=== PATIENT | male | born 1940 | race Caucasian/White ===

== ENCOUNTER 2019-12-17 07:41 | Outpatient (CLI) | payer MEDICARE, BC | END 2019-12-17 07:42 | disposition home or self-care (01) | LOC: DI 07:41 | PROVIDERS: ATTEND Registered Nurse | DX: I11.9 Hypertensive heart disease without heart failure (principal); I48.20 Chronic atrial fibrillation, unspecified; Z79.01 Long term (current) use of anticoagulants | CPT/HCPCS: 93306 ==

== ENCOUNTER 2020-06-09 07:51 | Outpatient (CLI) | payer MEDICARE, BC ==
[2020-06-09 15:50] LABS: BASOPHILS % (AUTO) 0.8 %; EOSINOPHILS # (AUTO) 0.2 10^3/uL (0.0-0.7); EOSINOPHILS % (AUTO) 3.8 %; LYMPHOCYTES # (AUTO) 1.1 10^3/uL (1.5-3.5); LYMPHOCYTES % (AUTO) 22.1 %; MEAN CORPUSCULAR HEMOGLOBIN 33.7 pg (27.0-31.0); MEAN CORPUSCULAR HGB CONC 32.1 g/dL (32.0-36.0); MEAN CORPUSCULAR VOLUME 105.1 fL (80.0-94.0); MEAN PLATELET VOLUME 12.2 fL (7.4-11.4); MONOCYTES # (AUTO) 0.4 10^3/uL (0.0-1.0); MONOCYTES % (AUTO) 7.7 %; NEUTROPHILS # (AUTO) 3.3 10^3/uL (1.5-6.6); NEUTROPHILS % (AUTO) 65.4 %; PLT - PLATELET COUNT 127 10^3/uL (130-450); RED BLOOD COUNT 3.56 10^6/uL (4.70-6.10); RED CELL DISTRIBUTION WIDTH 14.6 % (12.0-15.0); WHITE BLOOD COUNT 5.1 x10^3/uL (4.8-10.8)
[2020-06-09 16:00] LABS: ALBUMIN 3.9 g/dL (3.2-5.5); ALBUMIN/GLOBULIN RATIO 1.5 (1.0-2.2); ALKALINE PHOSPHATASE 54 IU/L (42-121); ALT ALANINE AMINOTRANSFERASE 17 IU/L (10-60); AST ASPARTATE AMINOTRANSFERASE 19 IU/L (10-42); BILIRUBIN,TOTAL 0.9 mg/dL (0.2-1.0); BUN - BLOOD UREA NITROGEN 27 mg/dL (6-20); CALCIUM 9.3 mg/dL (8.5-10.3); CARBON DIOXIDE - CO2 26 mmol/L (21-32); CHLORIDE 105 mmol/L (101-111); CHOL/HDL RATIO 3.2 (<5.0); CHOLESTEROL 161 mg/dL; CREATININE 1.1 mg/dL (0.6-1.2); GLUCOSE 97 mg/dL (70-100); HDL CHOLESTEROL 50 mg/dL; LDL CHOLESTEROL,CALCULATED 100 mg/dL; SODIUM 138 mmol/L (135-145); TOTAL PROTEIN 6.5 g/dL (6.7-8.2); VLDL CHOLESTEROL 11 mg/dL
== END 2020-06-09 07:52 | disposition home or self-care (01) ==
LOC: LAB.S 07:51
PROVIDERS: ATTEND Registered Nurse
DX: I10 Essential (primary) hypertension (principal); Z79.01 Long term (current) use of anticoagulants; I48.20 Chronic atrial fibrillation, unspecified
CPT/HCPCS: 36415; 80053; 80061; 83721; 84443; 85025

== ENCOUNTER 2020-09-06 08:00 | Outpatient (CLI) | payer MEDICARE, BC ==
--- NOTE | 2020-09-06 13:08 | XRAY Report ---
PROCEDURE: Shoulder 3 View RT INDICATIONS: PAIN IN RIGHT SHOULDER TECHNIQUE: 3 views of the shoulder were acquired. COMPARISON: None. FINDINGS: Bones: No acute fractures or dislocations. No suspicious bony lesions. Visualized ribs appear inta ct. Mild degenerative changes are seen in the acromioclavicular joint. Soft tissues: No suspicious soft tissue calcifications. Sternotomy changes are noted. IMPRESSION: No acute osseous abnormality. If there is clinical concern or persistent symptoms, furth er evaluation with repeat radiographs or advanced imaging (e.g. CT, MRI) may be obtained for further evaluation. Reviewed by: Ned Martinez MD on 09/06/2020 1:07 PM [facility] Approved by: Ned Martinez MD on 09/06/2020 1:07 PM [facility] Station ID: [id number]
--- NOTE | 2020-09-06 13:17 | XRAY Report ---
PROCEDURE: Clavicle RT INDICATIONS: PAIN IN RIGHT SHOULDER TECHNIQUE: 2 views of the clavicle were acquired. COMPARISON: Same day right shoulder radiographs. FINDINGS: Bones: No fractures or dislocations. No suspicious bony lesions. AC joint interval is within normal limits. Post median sternotomy. Soft tissues: No suspicious soft tissue calcifications. IMPRESSION: No clavicle fracture. Reviewed by: Kenneth Jasso MD on 09/06/2020 1:16 PM PST Approved by: Kenneth Jasso MD on 09/06/2020 1:16 PM [facility] Station ID: [id number]
== END 2020-09-06 23:59 | disposition home or self-care (01) ==
LOC: DI.S 08:00
PROVIDERS: ATTEND Physician Assistant Medical
DX: M25.511 Pain in right shoulder (principal); Z79.01 Long term (current) use of anticoagulants
CPT/HCPCS: 85610

== ENCOUNTER 2020-09-08 08:37 | Outpatient (CLI) | payer MEDICARE, BC | END 2020-09-08 08:38 | disposition home or self-care (01) | LOC: LAB.S 08:37 | PROVIDERS: ATTEND Registered Nurse | DX: S10.83XA Contusion of other specified part of neck, initial encounter (principal) | CPT/HCPCS: 36415; 80048; 85610 ==

== ENCOUNTER 2020-09-08 16:15 | Outpatient (CLI) | payer MEDICARE, BC ==
[2020-09-08 15:58] LABS: CALCIUM 9.7 mg/dL (8.5-10.3); CREATININE 1.2 mg/dL (0.6-1.2)
[2020-09-08] MEDS ORDERED: IOVERSOL 320 100 ML VIAL IVP ONE ×3 (16:29→19:40)
--- NOTE | 2020-09-08 17:23 | CT Report ---
PROCEDURE: CHEST W INDICATIONS: CONTUSION OF NECK, ANTICOAGULATION CONTRAST: IV CONTRAST: Optiray 320 ml: 100 PO CONTRAST: *NO PO CONTRAST TECHNIQUE: After the administration of intravenous contrast, 5 mm thick sections acquired from the pulmonary api radha to the posterior costophrenic angles. 7 mm thick coronal MIP reformats were acquired. For radia tion dose reduction, the following was used: automated exposure control, adjustment of mA and/or kV according to patient size. COMPARISON: None. FINDINGS: Image quality: Excellent. Lungs and pleura: No acute air space opacities. No pleural effusions or pneumothorax. Central and peripheral airways are patent and normal in caliber. The left lower lobe series 4 image 257 has a 6 mm nodule. Mediastinum: Heart size is normal. No pericardial effusion. No mediastinal or hilar adenopathy by size criteria. Thoracic aorta and central pulmonary arteries are normal in size. Esophagus is lonnie l in caliber. No hiatal hernia. Status post mitral valve replacement. Bones and chest wall: There is a nondisplaced fracture of the medial aspect of the right clavicle. Th e L1 vertebral body demonstrates anterior wedging consistent with a compression fracture likely chron ic but of indeterminate age. No axillary or supraclavicular adenopathy by size criteria. Thyroid gla nd is normal. Abdomen: Visualized upper abdominal solid organs appear normal. Upper abdominal bowel loops are nor mal in caliber. IMPRESSION: 1. Fracture of the medial right clavicle. 2. 6 mm nodule in the left lower lobe. Recommend follow-up imaging in 6 months to ensure stability. 3. Anterior wedging of the L1 vertebral body, likely chronic but of indeterminate age. Reviewed by: Mark Busch on 09/08/2020 5:22 PM PST Approved by: Mark Busch on 09/08/2020 5:22 PM PST Station ID: [id number]
--- NOTE | 2020-09-08 17:31 | CT Report ---
PROCEDURE: SOFT TISSUE NECK W INDICATIONS: CONTUSION OF NECK, ANTICOAGULATION CONTRAST: IV CONTRAST: Optiray 320 ml: 100 PO CONTRAST: *NO PO CONTRAST TECHNIQUE: After the administration of intravenous contrast, 3.0 mm axial sections acquired from the sella to th e aortic arch. Additional oblique axial 3.0 mm sections acquired through the pharynx. 3 mm thick co lew reformats were generated. For radiation dose reduction, the following was used: automated exp osure control, adjustment of mA and/or kV according to patient size. COMPARISON: None. FINDINGS: Image quality: Excellent. Lymph nodes: No enlarged lymph nodes seen throughout the neck. Vessels: Visualized vasculature appears patent. Neck spaces: The oropharynx, nasopharynx, and pharynx demonstrate no mucosal lesions. The vocal cor ds, false vocal cords, pyriform sinuses, epiglottis, vallecula, and tongue base all appear normal. E xtramucosal spaces appear unremarkable. Glands: The parotid and submandibular glands appear normal. The thyroid is normal in size. Miscellaneous: Visualized brain and orbits appear normal. Lung apices appear clear. Superficial so ft tissues appear normal. Bones: There is a fracture of the medial right clavicle. The right sternocleidomastoid muscle has an intramuscular hematoma extending cephalad. Visualized sinuses and mastoids appear unremarkable. The cervical spine has multilevel degenerative changes and multilevel disc disease. IMPRESSION: Fracture of the medial right clavicle with an intramuscular hematoma of the right sternoc leidomastoid muscle. Reviewed by: Mark Busch on 09/08/2020 5:29 PM [facility] Approved by: Mark Busch on 09/08/2020 5:29 PM PST Station ID: [id number]
== END 2020-09-08 16:16 | disposition home or self-care (01) ==
LOC: DI 16:15
PROVIDERS: ATTEND Physician Assistant Medical
DX: S42.017A Nondisplaced fracture of sternal end of right clavicle, initial encounter for closed fracture (principal); R91.1 Solitary pulmonary nodule; M79.81 Nontraumatic hematoma of soft tissue; S10.83XA Contusion of other specified part of neck, initial encounter
CPT/HCPCS: 36415; 70491; 71260; 80048; Q9967

== ENCOUNTER 2020-11-16 15:55 | Outpatient (CLI) | payer MEDICARE, BC ==
--- NOTE | 2020-11-16 17:00 | XRAY Report ---
PROCEDURE: Clavicle RT INDICATIONS: NONDISPLACED FRACTURE OF STERNAL END OF RT CLAVICL TECHNIQUE: 2 views of the clavicle were acquired. COMPARISON: 09/06/[address] dated 09/08/2020 FINDINGS: Bones: The minimally displaced medial right clavicular fracture seen on comparison CT is not well-vis ualized on today's radiographic evaluation. No significant periosteal reaction or callus formation se en. Fracture line is not well visualized secondary to numerous overlying structures. Coracoclavicular and acromioclavicular intervals are maintained. Multiple mediastinal wires remain intact. No suspic ious bony lesions. Soft tissues: No suspicious soft tissue calcifications. IMPRESSION: Known medial right clavicular fracture is not well visualized radiographically. The coracoclavicular and acromioclavicular intervals are maintained. Reviewed by: Roni Keith MD on 11/16/2020 4:58 PM PDT Approved by: Roni Keith MD on 11/16/2020 4:58 PM PDT Station ID: [id number]
== END 2020-11-16 15:56 | disposition home or self-care (01) ==
LOC: DI.S 15:55
PROVIDERS: ATTEND Registered Nurse
DX: S42.017A Nondisplaced fracture of sternal end of right clavicle, initial encounter for closed fracture (principal)

== ENCOUNTER 2021-08-17 12:57 | Outpatient (CLI) | payer MEDICARE, BC ==
[2021-08-17 20:00] LABS: BASOPHILS % (AUTO) 0.6 %; EOSINOPHILS # (AUTO) 0.1 10^3/uL (0.0-0.7); EOSINOPHILS % (AUTO) 1.5 %; HCT - HEMATOCRIT 36.3 % (42.0-52.0); LYMPHOCYTES % (AUTO) 19.6 %; MEAN CORPUSCULAR HEMOGLOBIN 34.1 pg (27.0-31.0); MEAN CORPUSCULAR HGB CONC 33.1 g/dL (32.0-36.0); MEAN CORPUSCULAR VOLUME 103.1 fL (80.0-94.0); MEAN PLATELET VOLUME 12.4 fL (7.4-11.4); MONOCYTES # (AUTO) 0.4 10^3/uL (0.0-1.0); MONOCYTES % (AUTO) 8.1 %; NEUTROPHILS # (AUTO) 3.6 10^3/uL (1.5-6.6); PLT - PLATELET COUNT 125 10^3/uL (130-450); RED BLOOD COUNT 3.52 10^6/uL (4.70-6.10); RED CELL DISTRIBUTION WIDTH 13.2 % (12.0-15.0); WHITE BLOOD COUNT 5.2 x10^3/uL (4.8-10.8)
[2021-08-17 20:23] LABS: ALBUMIN 4.1 g/dL (3.2-5.5); ALBUMIN/GLOBULIN RATIO 1.5 (1.0-2.2); ALKALINE PHOSPHATASE 53 IU/L (42-121); ALT ALANINE AMINOTRANSFERASE 15 IU/L (10-60); AST ASPARTATE AMINOTRANSFERASE 22 IU/L (10-42); BUN - BLOOD UREA NITROGEN 43 mg/dL (6-20); CALCIUM 9.1 mg/dL (8.5-10.3); CARBON DIOXIDE - CO2 27 mmol/L (21-32); CHLORIDE 104 mmol/L (101-111); CHOL/HDL RATIO 3.8 (<5.0); CHOLESTEROL 172 mg/dL; CREATININE 1.2 mg/dL (0.6-1.2); GFR - MDRD 58 (>89); GLUCOSE 101 mg/dL (70-100); HDL CHOLESTEROL 45 mg/dL; LDL CHOLESTEROL,CALCULATED 117 mg/dL; LDL/HDL RATIO 2.6 (<3.6); POTASSIUM 4.7 mmol/L (3.5-5.0); SODIUM 139 mmol/L (135-145); TOTAL PROTEIN 6.9 g/dL (6.7-8.2); TRIGLYCERIDES 52 mg/dL; VLDL CHOLESTEROL 10 mg/dL
[2021-08-17 20:34] LABS: THYROID STIMULATING HORMONE 1.49 uIU/mL (0.34-5.60)
[2021-08-17 20:40] LABS: FERRITIN 210.3 ng/mL (23.9-336.2)
== END 2021-08-17 12:58 | disposition home or self-care (01) ==
LOC: LAB.S 12:57
PROVIDERS: ATTEND Registered Nurse
DX: D64.9 Anemia, unspecified (principal); Z79.01 Long term (current) use of anticoagulants; I10 Essential (primary) hypertension; I48.20 Chronic atrial fibrillation, unspecified
CPT/HCPCS: 36415; 80053; 80061; 82728; 83721; 84443; 85025

== ENCOUNTER 2021-10-09 13:32 | Outpatient (CLI) | payer MEDICARE, BC ==
[2021-10-09 18:20] LABS: ALBUMIN 3.9 g/dL (3.2-5.5); ALKALINE PHOSPHATASE 48 IU/L (42-121); ALT ALANINE AMINOTRANSFERASE 15 IU/L (10-60); AST ASPARTATE AMINOTRANSFERASE 22 IU/L (10-42); BILIRUBIN,TOTAL 0.6 mg/dL (0.2-1.0); BUN - BLOOD UREA NITROGEN 57 mg/dL (6-20); CREATININE 1.5 mg/dL (0.6-1.2); GFR - MDRD 45 (>89); TOTAL PROTEIN 6.5 g/dL (6.7-8.2)
[2021-10-09 18:51] LABS: BILIRUBIN,DIRECT < 0.1 mg/dL (0.1-0.5)
== END 2021-10-09 13:33 | disposition home or self-care (01) ==
LOC: LAB.S 13:32
PROVIDERS: ATTEND Physician Assistant Medical
DX: B35.1 Tinea unguium (principal); Z79.899 Other long term (current) drug therapy
CPT/HCPCS: 36415; 80076; 82565; 84520

== ENCOUNTER 2021-12-19 14:28 | Outpatient (CLI) | payer MEDICARE, BC ==
--- NOTE | 2021-12-19 16:19 | XRAY Report ---
PROCEDURE: Lumbar Spine 2 View INDICATIONS: BACK PAIN, LUMBAR TECHNIQUE: 3 views of the lumbar spine were acquired. COMPARISON: None. FINDINGS: Bones: 5 taj-dpx-ouonior vertebrae are present. Diffuse osteopenia. Mild dextrocurvature centered at L1-L2. An L1 compression may potentially be acute. An L2 compression is probably chronic. No suspici ous bony lesions. Soft tissues: Overlying bowel gas pattern is normal. No suspicious soft tissue calcifications. IMPRESSION: 1. An L1 compression may potentially be acute. An L2 compression is probably chronic. 2. Dextrocurvature, osteopenia. 3. Lumbar spine MRI may potentially be helpful to identify potential fracture acuity. Reviewed by: Dav Goodwin MD on 12/19/2021 4:18 PM PDT Approved by: Dav Goodwin MD on 12/19/2021 4:18 PM PDT Station ID: [id number]
== END 2021-12-19 14:29 | disposition home or self-care (01) ==
LOC: DI.S 14:28
PROVIDERS: ATTEND Registered Nurse
DX: M48.53XA Collapsed vertebra, not elsewhere classified, cervicothoracic region, initial encounter for fracture (principal); M85.88 Other specified disorders of bone density and structure, other site

== ENCOUNTER 2022-01-06 13:11 | Outpatient (CLI) | payer MEDICARE, BC ==
[2022-01-06 20:26] LABS: CALCIUM 9.1 mg/dL (8.5-10.3); CREATININE 1.3 mg/dL (0.6-1.2); POTASSIUM 4.9 mmol/L (3.5-5.0)
== END 2022-01-06 13:12 | disposition home or self-care (01) ==
LOC: LAB.S 13:11
PROVIDERS: ATTEND Internal Medicine
DX: I50.22 Chronic systolic (congestive) heart failure (principal)
CPT/HCPCS: 36415; 80048

== ENCOUNTER 2022-02-07 10:31 | Outpatient (CLI) | payer MEDICARE, BC ==
--- NOTE | 2022-02-07 17:50 | MRI Report ---
PROCEDURE: MRI lumbar spine without contrast INDICATIONS: COLLAPSED VERTEBRA TECHNIQUE: Noncontrast sagittal T1 spin echo and T2 fast echo, sagittal STIR, axial T1 and T2 fast spin echo thr ough the lumbar spine. In cases with scoliosis, additional coronal T2 fast spin echo may be performe d. COMPARISON: None. FINDINGS: Image quality: Excellent. Alignment and Curvature: Convex right thoracolumbar scoliosis present. Bone Marrow: Modic type I degenerative endplate changes noted involving T11 superior endplates, L1-2 and without evidence of acute fracture. Wedge-shaped defect compression fractures are noted at L1 and L2 without evidence of marrow edema. Spinal Cord: Conus medullaris terminates at the L1 level. Visualized cord demonstrates normal signa l and size. Paraspinous Soft Tissues: No paravertebral masses. T12-L1: Disc space narrowing and circumferential disc bulge without central or foraminal stenosis. L1-L2: And disc space narrowing and circumferential disc bulge with hypertrophic facet joints resu lts in mild central stenosis. Severe left and no right foraminal stenosis L2-L3: Disc space narrowing with circumferential disc bulge and hypertrophic facet joint results i n mild to moderate central stenosis. Moderate left and right foraminal stenosis L3-L4: Disc height is maintained. Circumferential disc bulge and hypertrophic facet joints results in moderate central stenosis. Moderate bilateral foraminal stenosis present. L4-L5: Disc height is maintained. Circumferential disc bulge and hypertrophic facet joints results in moderate central stenosis. Severe right and moderate left foraminal stenosis L5-S1: Disc space narrowing with circumferential disc bulge associated with severe right and mild l eft foraminal stenosis. No central stenosis. IMPRESSION: Multilevel generative disc disease, arthropathy and dextroscoliosis results in varying degrees of leonard tral and foraminal stenosis including moderate central and severe right foraminal stenosis at L4-5. Chronic appearing L1 and L2 compression fractures. Reviewed by: Shayne Perez MD on 02/07/2022 4:49 PM [facility] Approved by: Shayne Perez MD on 02/07/2022 4:49 PM [facility] Station ID: [id number]
== END 2022-02-07 10:32 | disposition home or self-care (01) ==
LOC: DI 10:31
PROVIDERS: ATTEND Registered Nurse
DX: M48.56XA Collapsed vertebra, not elsewhere classified, lumbar region, initial encounter for fracture (principal); M47.815 Spondylosis without myelopathy or radiculopathy, thoracolumbar region; M47.816 Spondylosis without myelopathy or radiculopathy, lumbar region; M47.817 Spondylosis without myelopathy or radiculopathy, lumbosacral region; M48.061 Spinal stenosis, lumbar region without neurogenic claudication; M48.07 Spinal stenosis, lumbosacral region

== ENCOUNTER 2022-03-07 15:14 | Outpatient (CLI) | payer MEDICARE, BC ==
--- NOTE | 2022-03-07 18:26 | DEXA Report ---
PROCEDURE: Dexa Spine and/or Hip INDICATIONS: COLLAPSED VERTEBRA TECHNIQUE: Dual energy x-ray absorptiometry (DXA) was performed on a [employer] System. Regions measur ed are the AP Spine, femoral neck, and if needed forearm. COMPARISON: 02/07/2022 FINDINGS: Lumbar Spine: Bone Mineral Density 0.998 g/cm/cm,T score -1.9, BMD of L3 and L4 which do not have height loss show T scores of -2.3 and -2.5. Left Femoral Neck: Bone Mineral Density 0.68 g/cm/cm, T score -3, (T score greater or equal to -1.0: NORMAL) (T score from -1.1 to -2.4: OSTEOPENIA) (T score less than or equal to -2.5 to: OSTEOPOROSIS) Impression: Osteoporosis based on T-scores at L3, L4, and left femoral neck. L1 and L2 compression deformities. Patients with diagnosis of osteoporosis or osteopenia should have regular bone mineral density assess ment. For those eligible for Medicare, routine testing is allowed once every 2 years. Testing frequ ency can be increased for patients who have rapidly progressing disease or for those who are receivin g medical therapy to restore bone mass. Reviewed by: Med Beckham MD on 03/07/2022 6:25 PM PDT Approved by: Med Beckham MD on 03/07/2022 6:25 PM PDT Station ID: [id number]
== END 2022-03-07 15:15 | disposition home or self-care (01) ==
LOC: DI 15:14
PROVIDERS: ATTEND Registered Nurse
DX: M81.0 Age-related osteoporosis without current pathological fracture (principal); M48.56XA Collapsed vertebra, not elsewhere classified, lumbar region, initial encounter for fracture

== ENCOUNTER 2022-03-08 14:49 | Outpatient (CLI) | payer MEDICARE, BC ==
[2022-03-08 20:10] LABS: ALBUMIN 3.9 g/dL (3.2-5.5); BILIRUBIN,DIRECT 0.1 mg/dL (0.1-0.5); BILIRUBIN,TOTAL 0.4 mg/dL (0.2-1.0); TOTAL PROTEIN 6.2 g/dL (6.7-8.2)
== END 2022-03-08 14:50 | disposition home or self-care (01) ==
LOC: LAB.S 14:49
PROVIDERS: ATTEND Physician Assistant Medical
DX: B35.1 Tinea unguium (principal); Z79.899 Other long term (current) drug therapy
CPT/HCPCS: 36415; 80076

== ENCOUNTER 2022-09-13 15:29 | Emergency (ER) | payer MEDICARE, BC ==
--- NOTE | 2022-09-13 15:52 | ED Physician Documentation ---
History of Present Illness - Stated complaint Stated Complaint: FALL FROM CHAIR - Additonal information Additional information: 82-year-old male presents to the emergency department via EMS as a modified trauma. History is obtained from both the EMS chart as well as the patient. Patient is a good historian. This gentleman was sitting at home on a barstool when he fell asleep. He tipped forward falling into radial equipment. He woke up immediately. He does have a large abrasion on his right upper forehead as well as on his posterior occiput. 911 was summoned and he was brought here. He is on Coumadin. Very remote history of a mitral valve repair in 1978. Review of Systems Constitutional: denies: Fever, Chills Ears: reports: Reviewed and negative Throat: reports: Reviewed and negative Cardiac: denies: Chest pain / pressure, Palpitations Respiratory: reports: Reviewed and negative GI: reports: Reviewed and negative Skin: reports: Abrasion (s) Musculoskeletal: denies: Neck pain, Back pain PD PAST MEDICAL HISTORY - Past Medical History Cardiovascular: Atrial fibrillation, Arrhythmia, Valve disorder Respiratory: None Endocrine/Autoimmune: None GI: None : Benign prostate hypertrophy HEENT: Chronic vision loss, Chronic sinusitis, Chronic hearing loss Psych: None Musculoskeletal: None Derm: Other - Past Surgical History General: Colonoscopy Cardiovascular: Other Derm: Skin cancer surgery - Present Medications Home Medications: Ambulatory Orders Medication Instructions Recorded Confirmed Lisinopril 20 mg PO BID 10/05/15 10/06/15 Warfarin [Coumadin] 5 mg PO DAILY 10/05/15 10/06/15 carvediloL phosphate [Coreg Cr] 20 mg PO BID 10/06/15 10/06/15 - Allergies Allergies/Adverse Reactions: Allergies Allergy/AdvReac Type Severity Reaction Status Date / Time No Known Drug Allergies Allergy Verified 09/13/22 15:42 PD ED PE NORMAL - General General: Alert and oriented X 3, No acute distress, Well developed/nourished - HEENT HEENT: Atraumatic (Large abrasion on the right upper forehead as well as the right posterior occiput), Ears normal, Moist mucous membranes, Other (Patient presents in a rigid cervical collar. No midline cervical tenderness was elicited) - Neck Neck: Supple, no meningeal sign, No bony TTP, Other (Negative for hemotympanums maher sign and raccoon eyes) - Cardiac Cardiac: RRR. No: No murmur - Respiratory Respiratory: No respiratory distress, Clear bilaterally - Abdomen Abdomen: Normal bowel sounds, Soft - Derm Derm: Normal color, Warm and dry, Other (Abrasions as described above) - Extremities Extremities: No deformity - Neuro Neuro: Alert and oriented X 3, business solutions architect 2-12 intact, No motor deficit, No sensory deficit Eye Opening: Spontaneous Motor: Obeys Commands Verbal: Oriented GCS Score: 15 Results - Vitals Vitals: Vital Signs - 24 hr 09/13/22 09/13/22 15:42 15:55 Temperature 36.5 C Heart Rate 80 63 Respiratory 16 20 Rate Blood Pressure 144/78 H 144/78 H O2 Saturation 100 100 Oxygen O2 Source Room air - Labs Labs: Laboratory Tests 09/13/22 09/13/22 09/13/22 15:50 15:50 15:50 WBC 9.2 RBC 3.12 L Hgb 10.5 L Hct 32.4 L MCV 103.8 H MCH 33.7 H MCHC 32.4 RDW 13.9 Plt Count 133 MPV 11.3 Neut # (Auto) 7.8 H Lymph # (Auto) 0.7 L [place] # (Auto) 0.5 Eos # (Auto) 0.1 Baso # (Auto) 0.0 Absolute Nucleated RBC 0.00 Nucleated RBC % 0.0 PT 34.3 H INR 3.3 H Sodium 136 Potassium 4.6 Chloride 103 Carbon Dioxide 25 Anion Gap 8.0 BUN 43 H Creatinine 1.3 H Estimated GFR (MDRD) 53 L Glucose 121 H Calcium 8.9 - Rads (name of study) cxr Radiology: Final report received (Mild diffuse lung disease could represent edema or atypical infection. Cardiomegaly.) CT head Radiology: Final report received (No CT evidence of acute intracranial abnormalities. Age-related volume loss and mild to moderate white matter chronic small vessel ischemic changes. No gross acute skull fracture) Cervical CT Radiology: Final report received (No acute cervical spine fracture or dislocation. Degenerative disc disease throughout the cervical spine) Procedures - Laceration (location) Posterior scalp Length in cm: 3.5 Wound type: Linear, Into subcut fat Wound preparation: Chlorhexadine, Irrigated copiously NS Skin layer closure: Ramon (4 ramon placed in the right posterior vertical scalp wound.) Other: Patient tolerated well, No complications, Tetanus UTD PD Medical Decision Making - ED course Complexity details: reviewed results, re-evaluated patient, considered differential, d/w patient ED course: 82-year-old male who is anticoagulated on Coumadin secondary to a history of remote mitral valve repair presents emergency department for evaluation of closed head injury after he fell asleep on a barstool falling forward striking his head on radio equipment. There was no loss of consciousness. On exam in the emergency department the patient is a Erika Coma Scale of 15 with no focal deficits. He does have a 3.5 cm right posterior scalp laceration that was closed with 4 ramon. Tetanus was updated today in the ER. CT of the head was completed and shows no findings to suggest acute intracranial hemorrhage. CT of the cervical spine was negative. I personally remove the c- collar. The patient was able to range his neck fully without any pain elicited. There was no midline tenderness. I did personally evaluate the CBC and electrolytes. He does have mild amount of chronic kidney disease that is essentially unchanged from baseline. No worrisome anemia. His INR is 3.3 today the upper limit of normal for anticoagulated patients. Patient is discharged home in stable condition with usual routine emergent return precautions discussed Departure - Departure Disposition: 01 Home, Self Care Clinical Impression: Anticoagulated on Coumadin Fall Qualifiers: Encounter type: initial encounter Qualified Code(s): W19.XXXA - Unspecified fall, initial encounter Laceration of head Qualifiers: Encounter type: initial encounter Location of open wound of head: scalp Foreign body presence: without foreign body Qualified Code(s): S01.01XA - Laceration without foreign body of scalp, initial encounter CKD (chronic kidney disease) Qualifiers: Chronic kidney disease stage: unspecified stage Qualified Code(s): N18.9 - Chr onic kidney disease, unspecified Condition: Stable Record reviewed to determine appropriate education?: Yes Instructions: ED Laceration Scalp Stitch Or Stap Comments: Jaron you came to the emergency department today because you were sitting on a barstool at home, fell asleep and then fell forward. You did not lose consciousness. However you did sustain a 3.5 cm laceration to your right posterior occiput put. 4 ramon have been placed in this wound. This should be removed in 7 to 10 days. You can shower normally and apply a thin layer of antibiotic ointment over the wound when done. You also had a skin tear on your left index finger which was glued. This will simply heal over time. No specific care is necessary. The CT of your head and neck did not show any bruising or bleeding within the brain and no broken bones. I recommend that you get plenty of rest. Avoid any alcohol over the next few days. If at any point you develop sudden severe headache, have slurred speech, facial droop or arm or leg weakness you must return immediately to the ER
[2022-09-13 15:56] LABS: BASOPHILS % (AUTO) 0.3 %; EOSINOPHILS # (AUTO) 0.1 10^3/uL (0.0-0.7); EOSINOPHILS % (AUTO) 0.9 %; HCT - HEMATOCRIT 32.4 % (42.0-52.0); HGB - HEMOGLOBIN 10.5 g/dL (14.0-18.0); LYMPHOCYTES # (AUTO) 0.7 10^3/uL (1.5-3.5); LYMPHOCYTES % (AUTO) 7.6 %; MEAN CORPUSCULAR HEMOGLOBIN 33.7 pg (27.0-31.0); MEAN CORPUSCULAR HGB CONC 32.4 g/dL (32.0-36.0); MEAN CORPUSCULAR VOLUME 103.8 fL (80.0-94.0); MEAN PLATELET VOLUME 11.3 fL (7.4-11.4); MONOCYTES # (AUTO) 0.5 10^3/uL (0.0-1.0); MONOCYTES % (AUTO) 5.5 %; NEUTROPHILS # (AUTO) 7.8 10^3/uL (1.5-6.6); NEUTROPHILS % (AUTO) 85.3 %; PLT - PLATELET COUNT 133 10^3/uL (130-450); RED BLOOD COUNT 3.12 10^6/uL (4.70-6.10); RED CELL DISTRIBUTION WIDTH 13.9 % (12.0-15.0); WHITE BLOOD COUNT 9.2 x10^3/uL (4.8-10.8)
[2022-09-13 16:03] LABS: INR 3.3 (0.8-1.2); PT - PROTHROMBIN TIME 34.3 secs (9.9-12.6)
[2022-09-13 16:08] LABS: CALCIUM 8.9 mg/dL (8.5-10.3); CREATININE 1.3 mg/dL (0.6-1.2); POTASSIUM 4.6 mmol/L (3.5-5.0)
--- NOTE | 2022-09-13 16:14 | XRAY Report ---
PROCEDURE: Chest 1 View X-Ray INDICATIONS: fall TECHNIQUE: One view of the chest was acquired. COMPARISON: Chest CT 09/08/2020 FINDINGS: Surgical changes and devices: Sternotomy wires. Valve device. Lungs and pleura: Mild diffuse lung disease. No significant pleural effusion. Mediastinum: Cardiomegaly Bones and chest wall: No acute radiographic finding. IMPRESSION: Mild diffuse lung disease could represent edema or atypical infection. Cardiomegaly. Consider future imaging surveillance to assess for resolution. Reviewed by: Med Beckham MD on 09/13/2022 4:13 PM PST Approved by: Med Beckham MD on 09/13/2022 4:13 PM PST Station ID: [id number]
--- OUTSIDE RECORDS SUMMARY | 2022-09-13 16:41 | EXTERNAL MEDICAL SUMMARY RPT | Continuity of Care Document ---
:1940 Author Organization [facility] Address [address] [place] [address] Phone Care Team Providers Name Role Phone Unavailable Unavailable Unavailable Lora Dutta Unavailable Unavailable Allergies No information. Encounters No information. Functional Status No information. Immunizations No information. Medications date description facility 2022-07-07 00:00 spironolactone [facility] 2022-08-22 00:00 spironolactone [facility] 2022-09-13 00:00 spironolactone [facility] 2022-08-22 00:00 lisinopril [facility] 2022-07-07 00:00 terbinafine hcl [facility] 2022-08-22 00:00 terbinafine hcl [facility] 2022-09-13 00:00 terbinafine hcl [facility] 2022-08-22 00:00 lisinopril [facility] 2022-07-07 00:00 spironolactone [facility] 2022-08-22 00:00 spironolactone [facility] 2022-09-13 00:00 spironolactone [facility] 2022-08-22 00:00 carvedilol [facility] 2022-07-07 00:00 spironolactone [facility] 2022-08-22 00:00 spironolactone [facility] 2022-09-13 00:00 spironolactone [facility] 2022-07-07 00:00 spironolactone [facility] 2022-08-22 00:00 spironolactone [facility] 2022-09-13 00:00 spironolactone [facility] 2022-07-07 00:00 spironolactone [facility] 2022-08-22 00:00 spironolactone [facility] 2022-09-13 00:00 spironolactone [facility] 2022-07-07 00:00 terbinafine hcl [facility] 2022-08-22 00:00 terbinafine hcl [facility] 2022-09-13 00:00 terbinafine hcl [facility] 2022-08-22 00:00 lisinopril [facility] 2022-08-22 00:00 carvedilol [facility] 2022-07-07 00:00 terbinafine hcl [facility] 2022-08-22 00:00 terbinafine hcl [facility] 2022-09-13 00:00 terbinafine hcl [facility] 2022-08-22 00:00 lisinopril [facility] 2022-07-07 00:00 spironolactone [facility] 2022-08-22 00:00 spironolactone [facility] 2022-09-13 00:00 spironolactone [facility] 2022-07-07 00:00 spironolactone [facility] 2022-08-22 00:00 spironolactone [facility] 2022-09-13 00:00 spironolactone [facility] 2022-08-22 00:00 carvedilol [facility] 2022-07-07 00:00 spironolactone [facility] 2022-08-22 00:00 spironolactone [facility] 2022-09-13 00:00 spironolactone [facility] 2022-07-07 00:00 terbinafine hcl [facility] 2022-08-22 00:00 terbinafine hcl [facility] 2022-09-13 00:00 terbinafine hcl [facility] 2022-08-22 00:00 carvedilol [facility] Problems date description facility 2022-08-22 00:00 Procedure carried out on subject [facility] Mark becerril 2022-08-22 00:00 Screening for lipoid disorders [facility] shasta 2022-08-22 00:00 Encounter for screening for [facility] lipoid [facility] jone Procedures No information. Results/Labs test date author facility value unit interpret ation Result panel 1 (unknown) (no date) (unknown) Walk[facility] (no value) (units [facility]own[facility] Result panel 2 (unknown) (no date) (unknown) Walk-[facility] (no value) (units [facility] Result panel 3 (unknown) (no date) (unknown) Walk[facility] (no value) (units ([facility] Result panel 4 (unknown) (no date) (unknown) Walk[facility] (no value) (units ([facility] Result panel 5 (unknown) (no date) (unknown) [facility] (no value) (units ([facility] Result panel 6 (unknown) (no date) (unknown) [facility] (no value) (units ([facility] Result panel 7 (unknown) (no date) (unknown) [facility] (no value) (units ([facility]own) [facility] Result panel 8 (unknown) (no date) (unknown) Walk-In (no value) (units ([facility]own) [facility] Result panel 9 (unknown) (no date) (unknown) Walk-[facility] (no value) (units [facility] Result panel 10 (unknown) (no date) (unknown) Walk-[facility] (no value) (units ([facility]own[facility] Result panel 11 (unknown) (no date) (unknown) Walk-[facility] (no value) (units ([facility]own) [facility] Result panel 12 (unknown) (no date) (unknown) Walk-[facility] (no value) (units ([facility]own[facility] Result panel 13 (unknown) (no date) (unknown) Walk-[facility] (no value) (units ([facility]own) [facility] Result panel 14 (unknown) (no date) (unknown) Walk-[facility] (no value) (units ([facility]own[facility] Result panel 15 (unknown) (no date) (unknown) Walk-[facility] (no value) (units ([facility] Result panel 16 (unknown) (no date) (unknown) Walk-[facility] (no value) ([facility] ([facility] Result panel 17 (unknown) (no date) (unknown) Walk-[facility] (no value) ([facility] ([facility] Result panel 18 (unknown) (no date) (unknown) [facility] (no value) ([facility] Result panel 19 (unknown) (no date) (unknown) Walk-[facility] (no value) [facility] Result panel 20 (unknown) (no date) (unknown) Walk-[facility] (no value) ([facility] Result panel 21 (unknown) (no date) (unknown) Walk-[facility] (no value) ([facility] Result panel 22 (unknown) (no date) (unknown) Walk-[facility] (no value) ([facility] Result panel 23 (unknown) (no date) (unknown) Walk-[facility] (no value) ([facility] ([facility] Result panel 24 (unknown) (no date) (unknown) Walk-[facility] (no value) (units ([facility] Result panel 25 (unknown) (no date) (unknown) Walk-[facility] (no value) ([facility] ([facility] Result panel 26 (unknown) (no date) (unknown) Walk-[facility] (no value) ([facility] ([facility] Result panel 27 (unknown) (no date) (unknown) Walk-[facility] (no value) ([facility] ([facility] Result panel 28 (unknown) (no date) (unknown) Walk-[facility] (no value) ([facility] Result panel 29 (unknown) (no date) (unknown) Walk-In (no value) ([facility] Result panel 30 (unknown) (no date) (unknown) Walk-[facility] (no value) ([facility] Result panel 31 (unknown) (no date) (unknown) Walk-In (no value) ([facility] ([facility] Result panel 32 (unknown) (no date) (unknown) Walk-In (no value) ([facility] ([facility] Result panel 33 (unknown) (no date) (unknown) Walk-In (no value) ([facility] ([facility] Result panel 34 (unknown) (no date) (unknown) Walk-In (no value) ([facility] ([facility] Result panel 35 (unknown) (no date) (unknown) Walk-In (no value) (units ([facility] Result panel 36 (unknown) (no date) (unknown) Walk-In (no value) ([facility] ([facility] Result panel 37 (unknown) (no date) (unknown) Walk-In (no value) ([facility] Result panel 38 (unknown) (no date) (unknown) Walk-In (no value) ([facility] ([facility] Result panel 39 (unknown) (no date) (unknown) Walk-In (no value) ([facility] Result panel 40 (unknown) (no date) (unknown) Walk-[facility] (no value) ([facility] Result panel 41 (unknown) (no date) (unknown) Walk-In (no value) ([facility] Result panel 42 (unknown) (no date) (unknown) Walk-In (no value) ([facility] ([facility] Result panel 43 (unknown) (no date) (unknown) Walk-In (no value) ([facility] ([facility] Result panel 44 (unknown) (no date) (unknown) Walk-In (no value) ([facility] ([facility] Result panel 45 (unknown) (no date) (unknown) Walk-In (no value) (units ([facility]own[facility] Result panel 46 (unknown) (no date) (unknown) Walk-In (no value) (units ([facility] Result panel 47 (unknown) (no date) (unknown) Walk-In (no value) (units ([facility]own[facility] Result panel 48 (unknown) (no date) (unknown) Walk-In (no value) (units ([facility]own[facility] Result panel 49 (unknown) (no date) (unknown) Walk-In (no value) ([facility] ([facility] Result panel 50 (unknown) (no date) (unknown) Walk-In (no value) (units ([facility]own[facility] Result panel 51 (unknown) (no date) (unknown) Walk-In (no value) (units ([facility]own[facility] Result panel 52 (unknown) (no date) (unknown) Walk-In (no value) (units ([facility]own[facility] Result panel 53 (unknown) (no date) (unknown) Walk-In (no value) (units ([facility] Result panel 54 (unknown) (no date) (unknown) Walk-In (no value) (units ([facility]own[facility] Result panel 55 (unknown) (no date) (unknown) Walk-In (no value) (units ([facility] Result panel 56 (unknown) (no date) (unknown) Walk-In (no value) (units ([facility] Result panel 57 (unknown) (no date) (unknown) Walk-In (no value) (units [facility] Result panel 58 (unknown) (no date) (unknown) Walk-In (no value) ([facility] Result panel 59 (unknown) (no date) (unknown) Walk-In (no value) [facility] Social History No information. Vital Signs No information.
--- NOTE | 2022-09-13 16:56 | CT Report ---
PROCEDURE: HEAD WO INDICATIONS: fall on coumadin TECHNIQUE: Noncontrast 4.5 mm thick angled axial sections acquired from the foramen magnum to the vertex. For r adiation dose reduction, the following was used: automated exposure control, adjustment of mA and/or kV according to patient size. COMPARISON: None FINDINGS: Image quality: Excellent. CSF spaces: Basal cisterns are patent. No extra-axial fluid collections. The ventricles are symmet freida in size and shape. Brain: No intracranial bleeds or masses. There is cerebral volume loss for age, with resultant vent ricular and sulcal prominence. There are periventricular and deep white matter chronic small vessel ischemic changes. There is intracranial internal carotid artery atherosclerosis. Skull and face: Calvarium and visualized facial bones appear intact, without suspicious lesions. Sinuses: Visualized sinuses and mastoids are clear. IMPRESSION: 1. No CT evidence of acute intracranial abnormalities. 2. Age-related volume loss and mild to moderate white matter chronic small vessel ischemic changes. 3. No gross acute skull fracture. Reviewed by: Gerald Lewis MD on 09/13/2022 4:54 PM PST Approved by: Gerald Lewis MD on 09/13/2022 4:54 PM PST Station ID: [id number]
--- NOTE | 2022-09-13 16:59 | CT Report ---
PROCEDURE: CERVICAL SPINE WO INDICATIONS: fall on coumadin TECHNIQUE: Noncontrast 3 mm thick sections acquired from the skull base to the T4 level. Sagittal and coronal r eformats were then constructed. For radiation dose reduction, the following was used: automated exp osure control, adjustment of mA and/or kV according to patient size. COMPARISON: None. FINDINGS: Image quality: Excellent. Bones: No fractures or dislocations. Loss of disc height, degenerative endplate changes and bilater al facet hypertrophic changes are noted throughout cervical spine causing [id number] central ca nal stenosis most notably at C3-4 and C5-6 levels. Visualized superior ribs are intact. Soft tissues: Prevertebral soft tissues are normal in thickness. No paravertebral hematomas. No ap ical pneumothoraces. IMPRESSION: 1. No acute cervical spine fracture or dislocation. 2. Degenerative disc disease throughout cervical spine as above. Reviewed by: Gerald Lewis MD on 09/13/2022 4:57 PM PST Approved by: Gerald Lewis MD on 09/13/2022 4:57 PM PST Station ID: [id number]
[2022-09-13] MEDS ORDERED: TETANUS/DIPHTHERIA/PERTUSSIS 0.5 ML SYRINGE IM ONE (17:27)
[2022-09-13 17:45] VITALS: BP 150/89
== END 2022-09-13 17:45 | disposition home or self-care (01) ==
LOC: EDSEX → EDUNIT# → ED 15:29
DX: S01.01XA Laceration without foreign body of scalp, initial encounter (principal); S61.211A Laceration without foreign body of left index finger without damage to nail, initial encounter; W08.XXXA Fall from other furniture, initial encounter; Y92.009 Unspecified place in unspecified non-institutional (private) residence as the place of occurrence of the external cause; W22.09XA Striking against other stationary object, initial encounter; N18.9 Chronic kidney disease, unspecified; Z79.01 Long term (current) use of anticoagulants
CPT/HCPCS: 12002; 36415; 80048; 85025; 85610; 90471; 99283; 99284

== ENCOUNTER 2023-06-07 11:31 | Outpatient (CLI) | payer MEDICARE, BC | END 2023-06-07 11:32 | disposition short-term general hospital (02) | LOC: EMS 11:31 | DX: R07.9 Chest pain, unspecified (principal); R42 Dizziness and giddiness; R00.0 Tachycardia, unspecified; I95.9 Hypotension, unspecified | CPT/HCPCS: A0425; A0433 ==

== ENCOUNTER 2023-06-18 18:46 | Emergency (ER) | payer MEDICARE, BC ==
[2023-06-18 18:57] VITALS: BP 165/100; O2SAT 100
--- NOTE | 2023-06-18 19:53 | ED Physician Documentation ---
History of Present Illness - Stated complaint Stated Complaint: - Chief complaint Chief Complaint: General - History obtained from History obtained from: Patient - History of Present Illness Timing: Today Pain level max: 4 Pain level now: 4 - Additonal information Additional information: Patient has had a Valdez catheter for the past 10 days, this was placed after surgery. He had his catheter removed today for voiding trial and has been unable to void. Here requesting the catheter be placed back in. Review of Systems Constitutional: denies: Fever GI: denies: Vomiting : denies: Dysuria, Frequency, Hesitancy PD PAST MEDICAL HISTORY - Past Medical History Past Medical History: Yes Cardiovascular: Atrial fibrillation, Arrhythmia, Valve disorder Respiratory: None Endocrine/Autoimmune: None GI: None : Benign prostate hypertrophy HEENT: Chronic vision loss, Chronic sinusitis, Chronic hearing loss Psych: None Musculoskeletal: None Derm: Other - Past Surgical History Past Surgical History: Yes General: Colonoscopy Cardiovascular: Other Derm: Skin cancer surgery - Present Medications Home Medications: Ambulatory Orders Medication Instructions Recorded Confirmed Lisinopril 20 mg PO BID 10/05/15 10/06/15 Warfarin [Coumadin] 5 mg PO DAILY 10/05/15 10/06/15 carvediloL phosphate [Coreg Cr] 20 mg PO BID 10/06/15 10/06/15 - Allergies Allergies/Adverse Reactions: Allergies Allergy/AdvReac Type Severity Reaction Status Date / Time No Known Drug Allergies Allergy Verified 09/13/22 15:42 - Social History Does the pt smoke?: No Smoking Status: Never smoker PD ED PE NORMAL - Vitals Vital signs reviewed: Yes - General General: Alert and oriented X 3, No acute distress - HEENT HEENT: Moist mucous membranes - Cardiac Cardiac: RRR - Respiratory Respiratory: No respiratory distress, Clear bilaterally - Abdomen Abdomen: Soft, Non tender, Non distended - Derm Derm: Warm and dry - Neuro Neuro: Alert and oriented X 3 Results - Vitals Vitals: Vital Signs - 24 hr 06/18/23 18:50 Temperature 36.6 C Heart Rate 75 Respiratory 16 Rate Blood Pressure 165/100 H O2 Saturation 100 Oxygen O2 Source Room air PD Medical Decision Making - ED course Complexity details: considered differential, d/w patient ED course: Valdez catheter was placed, bladder was drained. Valdez catheter will be left in place and he will follow-up with his PCP for further care. No emergency medical condition at this time. Patient counseled regarding signs and symptoms for which I believe and urgent re-evaluation would be necessary. Patient with good understanding of and agreement to plan and is comfortable going home at this time This document was made in part using voice recognition software. While efforts are made to proofread this document, sound alike and grammatical errors may occur. Departure - Departure Disposition: 01 Home, Self Care Clinical Impression: Urinary retention Condition: Good Instructions: ED Catheter Care Valdez Follow-Up: Lora Ocasio ARNP [Primary Care Provider] - Within 1 week Comments: A Valdez catheter was placed tonight. Please follow-up with your doctor for further care. We will leave the catheter in place until it is removed by your doctor. Forms: PCP List Discharge Date/Time: 06/18/23 20:17
== END 2023-06-18 20:17 | disposition home or self-care (01) ==
LOC: ED 18:46
DX: R33.9 Retention of urine, unspecified (principal)
CPT/HCPCS: 51702; 99282; 99283

== ENCOUNTER 2023-07-09 17:12 | Outpatient (CLI) | payer MEDICARE, BC | END 2023-07-09 17:13 | disposition critical access hospital (66) | LOC: EMS 17:12 | DX: I95.9 Hypotension, unspecified (principal); R39.89 Other symptoms and signs involving the genitourinary system | CPT/HCPCS: A0425; A0427 ==

== ENCOUNTER 2023-07-09 17:54 | Emergency (ER) | payer MEDICARE, BC ==
[2023-07-09 18:39] LABS: BASOPHILS # (AUTO) 0.1 10^3/uL (0.0-0.1); BASOPHILS % (AUTO) 0.6 %; EOSINOPHILS # (AUTO) 0.1 10^3/uL (0.0-0.7); EOSINOPHILS % (AUTO) 1.7 %; HCT - HEMATOCRIT 33.5 % (42.0-52.0); HGB - HEMOGLOBIN 10.8 g/dL (14.0-18.0); LYMPHOCYTES # (AUTO) 0.5 10^3/uL (1.5-3.5); LYMPHOCYTES % (AUTO) 6.6 %; MEAN CORPUSCULAR HEMOGLOBIN 33.6 pg (27.0-31.0); MEAN CORPUSCULAR HGB CONC 32.2 g/dL (32.0-36.0); MEAN CORPUSCULAR VOLUME 104.4 fL (80.0-94.0); MEAN PLATELET VOLUME 10.6 fL (7.4-11.4); MONOCYTES # (AUTO) 0.8 10^3/uL (0.0-1.0); MONOCYTES % (AUTO) 9.3 %; NEUTROPHILS # (AUTO) 6.5 10^3/uL (1.5-6.6); NEUTROPHILS % (AUTO) 81.3 %; PLT - PLATELET COUNT 147 10^3/uL (130-450); RED BLOOD COUNT 3.21 10^6/uL (4.70-6.10); RED CELL DISTRIBUTION WIDTH 14.5 % (12.0-15.0); WHITE BLOOD COUNT 8.1 x10^3/uL (4.8-10.8)
[2023-07-09 18:53] LABS: ALBUMIN 3.9 g/dL (3.2-5.5); ALBUMIN/GLOBULIN RATIO 1.8 (1.0-2.2); BILIRUBIN,TOTAL 0.5 mg/dL (0.2-1.0); CALCIUM 9.1 mg/dL (8.5-10.3); CREATININE 2.1 mg/dL (0.6-1.3); POTASSIUM 5.5 mmol/L (3.5-4.5); TOTAL PROTEIN 6.1 g/dL (6.4-8.9)
--- NOTE | 2023-07-09 18:53 | XRAY Report ---
PROCEDURE: Chest 1 View X-Ray INDICATIONS: Chest pain TECHNIQUE: One view of the chest was acquired. COMPARISON: 09/13/2022 FINDINGS: Surgical changes and devices: Left chest wall pulse rate and sternotomy wires. Electrode leads in pl [facility]. Valvular device seen. Lungs and pleura: No dense consolidation or pleural effusion. Mild basal opacities may represent ate lectasis. A possible nodule projects over the right midlung. Mediastinum: Borderline cardiomegaly Bones and chest wall: Degenerative changes. IMPRESSION: No acute radiographic abnormality. Mild left lung opacities may represent atelectasis or mucous plugg ing. A possible nodule projects over the right midlung. Consider future imaging surveillance to asses s for surveillance. Left chest wall pulse with electrode leads in place. Sternotomy wires. Valve device. Limited portable single view radiograph. Reviewed by: Med Beckham MD on 07/09/2023 6:52 PM PST Approved by: Med Beckham MD on 07/09/2023 6:52 PM PST Station ID: [id number]
[2023-07-09] MEDS ORDERED: SODIUM CHLORIDE 0.9% 1,000 ML IV STA (19:05)
[2023-07-09 19:08] LABS: TROPONIN I HIGH SENSITIVITY 88.7 ng/L (2.3-19.7)
[2023-07-09 19:39] VITALS: O2SAT 100
--- NOTE | 2023-07-09 21:40 | ED Physician Documentation ---
History of Present Illness - Stated complaint Stated Complaint: LOW BP - Chief complaint Chief Complaint: Cardiac - History obtained from History obtained from: Patient - Additonal information Additional information: The patient comes to the emergency department for chief complaint of low blood pressure. 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 He states that his blood pressures have run been running quite low and he has been very low on energy and fatigue. He states that he talked to his kiln furniture saw tender office several days ago and told them what was going on and they instructed him to hold his lisinopril in the evening if his blood pressure was too low. They also cut his carvedilol dose in half. Patient states has not really improved things. He states that he has not had any chest pain or shortness of breath that is unusual. No nausea. No fevers or chills. Patient states he otherwise feels pretty good. No other complaints at this time. PD PAST MEDICAL HISTORY - Past Medical History Past Medical History: Yes Cardiovascular: Congestive heart failure, Atrial fibrillation, Arrhythmia, Valve disorder Respiratory: None Endocrine/Autoimmune: None GI: None : Benign prostate hypertrophy HEENT: Chronic vision loss, Chronic sinusitis, Chronic hearing loss Psych: None Musculoskeletal: None Derm: Other - Past Surgical History Past Surgical History: Yes General: Colonoscopy Cardiovascular: Pacemaker, Other Derm: Skin cancer surgery - Present Medications Home Medications: Ambulatory Orders Medication Instructions Recorded Confirmed Lisinopril 20 mg PO BID 10/05/15 10/06/15 Warfarin [Coumadin] 5 mg PO DAILY 10/05/15 10/06/15 carvediloL phosphate [Coreg Cr] 20 mg PO BID 10/06/15 10/06/15 - Allergies Allergies/Adverse Reactions: Allergies Allergy/AdvReac Type Severity Reaction Status Date / Time No Known Drug Allergies Allergy Verified 07/09/23 17:59 - Social History Does the pt smoke?: No Smoking Status: Never smoker Does the pt drink ETOH?: No Does the pt have substance abuse?: No - Immunizations Immunizations are current?: Yes PD ED PE NORMAL - Vitals Vital signs reviewed: Yes - General General: Alert and oriented X 3, No acute distress, Well developed/nourished - HEENT HEENT: Atraumatic, PERRL, EOMI, Moist mucous membranes - Neck Neck: Supple, no meningeal sign - Cardiac Cardiac: RRR, No murmur - Respiratory Respiratory: No respiratory distress, Clear bilaterally - Abdomen Abdomen: Soft, Non tender, Non distended - Derm Derm: Normal color, Warm and dry - Extremities Extremities: No deformity - Neuro Neuro: Alert and oriented X 3 - Psych Psych: Normal mood, Normal affect Results - Vitals Vitals: Vital Signs - 24 hr 07/09/23 07/09/23 07/09/23 17:59 19:31 20:18 Temperature 36.8 C 37 C 37 C Heart Rate 70 70 73 Respiratory 16 20 17 Rate Blood Pressure 85/59 L 112/78 108/85 H O2 Saturation 98 100 100 07/09/23 07/09/23 20:55 22:03 Temperature 37 C Heart Rate 70 86 Respiratory 20 17 Rate Blood Pressure 121/70 127/85 H O2 Saturation 100 100 Oxygen O2 Source Room air - EKG (time done) 1833 EKG releavant findings:: EKG personally interpreted by author of this note. Relevant findings are: Rate: Rate (enter#) (70) Rhythm: Paced - Labs Labs: Laboratory Tests 07/09/23 07/09/23 07/09/23 18:34 18:34 19:59 WBC 8.1 RBC 3.21 L Hgb 10.8 L Hct 33.5 L MCV 104.4 H MCH 33.6 H MCHC 32.2 RDW 14.5 Plt Count 147 MPV 10.6 Neut # (Auto) 6.5 Lymph # (Auto) 0.5 L [place] # (Auto) 0.8 Eos # (Auto) 0.1 Baso # (Auto) 0.1 Absolute Nucleated RBC 0.00 Nucleated RBC % 0.0 Sodium 133 L Potassium 5.5 H Chloride 102 Carbon Dioxide 24 Anion Gap 7.0 BUN 51 H Creatinine 2.1 H Estimated GFR (MDRD) 30 L Glucose 110 H Lactic Acid 0.9 Calcium 9.1 Total Bilirubin 0.5 AST 19 ALT 13 Alkaline Phosphatase 57 Troponin I High Sens 88.7 H* B-Natriuretic Peptide Total Protein 6.1 L Albumin 3.9 Globulin 2.2 Albumin/Globulin Ratio 1.8 Lipase 78 07/09/23 07/09/23 19:59 19:59 WBC RBC Hgb Hct MCV MCH MCHC RDW Plt Count MPV Neut # (Auto) Lymph # (Auto) [place] # (Auto) Eos # (Auto) Baso # (Auto) Absolute Nucleated RBC Nucleated RBC % Sodium Potassium Chloride Carbon Dioxide Anion Gap BUN Creatinine Estimated GFR (MDRD) Glucose Lactic Acid Calcium Total Bilirubin AST ALT Alkaline Phosphatase Troponin I High Sens 86.4 H* B-Natriuretic Peptide 246 H Total Protein Albumin Globulin Albumin/Globulin Ratio Lipase - Rads (name of study) Chest x-ray Relevant Findings:: Final report received, See rad report (Negative) PD Medical Decision Making - ED course Complexity details: reviewed old records, reviewed results, re-evaluated patient, considered differential, d/w patient ED course: The patient was worked up with laboratory studies, which were ordered from triage, as well as chest x-ray and EKG. EKG and chest x-ray are unremarkable. Labs showed a troponin of 88. Repeat troponin was also in the 80s. I spoke with Dr. Harvey, who was on-call for [facility] cardiology, the group that the patient's kiln furniture saw tender Dr. Price is a part of. Dr. Harvey felt that most likely, the troponin reflected the hypotension and was not a true SD. He advised that the patient could be discharged home and that he should call the kiln furniture saw tender office to set up a follow-up appointment. I discussed this plan with the patient who is agreeable. We have also discussed a plan for adjusting the antihypertensive doses dependent on the patient's blood pressure. The patient feels good and his blood pressure is within normal limits. We have discussed the usual indications for return. Departure - Departure Disposition: 01 Home, Self Care Clinical Impression: Hypotension Qualifiers: Hypotension type: hypotension due to drug Qualified Code(s): I95.2 - Hypotension due to drugs Fatigue Qualifiers: Fatigue type: unspecified Qualified Code(s): R53.83 - Other fatigue Condition: Stable Instructions: ED Hypotension All Causes Comments: Your blood pressure is most likely running low because of the medications you are on for your blood pressure. Most likely, you need to have further adjustments to your doses, though we will leave this to Dr. Lim's discretion. Your EKG looks great and your pacemaker appears to be functioning normally. Your laboratory studies did show elevated cardiac enzymes, but these do appear to be fairly stable. Because of this, your case was discussed with Dr. Harvey of cardiology, one of Dr. Lim's partners. He feels that it is most likely the low blood pressure that caused your cardiac enzymes to go up. He does not think he needs to stay in the hospital for this but did recommend that you call their office first thing tomorrow morning to set up a follow-up appointment. Be sure to tell them you are in the ER, that your blood pressure continues to run low, and that your cardiac enzymes were elevated. Please also let them know that your ER doctor did discuss the case with Dr. Harvey and his recommendation was to follow-up in the clinic. If you develop any severe chest pain or shortness of breath, please return to the emergency department immediately. As far as your blood pressures, if you are upper number is less than 120, I would recommend not taking the Lisinopril at night. You should continue your carvedilol as usual unless you are blood pressure is less than 1 10 at night for the top number in which case you should probably hold that to. If you are having to hold both of your night doses, you should call Dr. Lim's office to get some direction as to where to go from there. Forms: PCP List Discharge Date/Time: 07/09/23 22:03
[2023-07-09 22:07] VITALS: BP 127/85
== END 2023-07-09 22:03 | disposition home or self-care (01) ==
LOC: EDUNIT# → ED 17:54
DX: I95.2 Hypotension due to drugs (principal); R53.83 Other fatigue; I50.9 Heart failure, unspecified; I48.91 Unspecified atrial fibrillation; Z79.01 Long term (current) use of anticoagulants; Z79.899 Other long term (current) drug therapy
CPT/HCPCS: 36415; 80053; 83605; 83690; 83880; 84484; 85025; 93005; 96360; 99284

== ENCOUNTER 2023-07-11 13:06 | Outpatient (CLI) | payer MEDICARE, BC | END 2023-07-11 13:07 | disposition home or self-care (01) | LOC: LAB.S 13:06 | PROVIDERS: ATTEND Registered Nurse | DX: Z79.01 Long term (current) use of anticoagulants (principal); I48.20 Chronic atrial fibrillation, unspecified | CPT/HCPCS: 36416; 85610 ==

== ENCOUNTER 2023-07-18 15:06 | Outpatient (CLI) | payer MEDICARE, BC | END 2023-07-18 15:07 | disposition home or self-care (01) | LOC: LAB.S 15:06 | DX: I48.91 Unspecified atrial fibrillation (principal) | CPT/HCPCS: 36416; 85610 ==

== ENCOUNTER 2023-07-25 14:37 | Outpatient (CLI) | payer MEDICARE, BC | END 2023-07-25 14:38 | disposition home or self-care (01) | LOC: LAB.S 14:37 | PROVIDERS: ATTEND Student in an Organized Health Care Education/Training Program | DX: R33.9 Retention of urine, unspecified (principal) | CPT/HCPCS: 36415; 84153 ==

== ENCOUNTER 2024-01-04 10:29 | Outpatient (CLI) | payer MEDICARE, BC ==
[2024-01-04 15:15] LABS: ALBUMIN 3.9 g/dL (3.2-5.5)
[2024-01-04 15:21] LABS: BILIRUBIN,DIRECT 0.14 mg/dL (0.03-0.18); BILIRUBIN,TOTAL 0.6 mg/dL (0.2-1.0); CREATININE 1.9 mg/dL (0.6-1.3); TOTAL PROTEIN 6.2 g/dL (6.4-8.9)
== END 2024-01-04 10:30 | disposition home or self-care (01) ==
LOC: LAB.S 10:29
PROVIDERS: ATTEND Physician Assistant Medical
DX: B35.1 Tinea unguium (principal)
CPT/HCPCS: 36415; 80076; 82565; 84520

== ENCOUNTER 2024-03-21 13:14 | Outpatient (CLI) | payer MEDICARE, BC ==
[2024-03-21 20:02] LABS: ALBUMIN 3.8 g/dL (3.2-5.5)
[2024-03-21 20:08] LABS: BILIRUBIN,DIRECT 0.1 mg/dL (0.03-0.18); BILIRUBIN,TOTAL 0.5 mg/dL (0.2-1.0); CREATININE 2.2 mg/dL (0.6-1.3); TOTAL PROTEIN 5.9 g/dL (6.4-8.9)
== END 2024-03-21 13:15 | disposition home or self-care (01) ==
LOC: LAB.S 13:14
PROVIDERS: ATTEND Physician Assistant Medical
DX: B35.1 Tinea unguium (principal)
CPT/HCPCS: 36415; 80076; 82565; 84520